=== PATIENT | male | born 1950 | race Caucasian/White ===

== ENCOUNTER 2021-01-01 15:13 | Emergency (ER) | payer MEDICARE, OTHER ==
[~2021-01-01] VITALS: Ht 162.6 cm; Wt 62.1 kg
--- NOTE | 2021-01-01 15:13 | NUR ---
Patient BIBA ALS from home, transferred to bed 6. RN evaluating the patient at bedside.
--- NOTE | 2021-01-01 15:22 | NUR ---
Dr. Harvey is evaluating the patient at bedside.
[2021-01-01 15:23] VITALS: BP 122/60
--- NOTE | 2021-01-01 15:23 | NUR ---
audio technician at pt bedside.
[2021-01-01] MEDS ORDERED: NACL 0.9% 1,000 ML IV ONE (15:25)
--- NOTE | 2021-01-01 15:32 | NUR ---
70 Y/O MALE BIBA FROM HOME HERE FOR ALOC X1WEEK, PT IS A&OX2, REORIENTED TO PLACE. PER EMT PT FAMILY REPORTS THAT PT HAD FALLEN OUT OF CHAIR AND HAS BEEN MUMBLING/SLURRING WORDS AT HOME TODAY. EMT REPORTS PT DRINKS DAILY, 2-3 BEERS. PT STATES HE HAD 2 1/2 BEERS THIS MORNING PRIOR TO ARRIVAL. DENIES ANY PAIN AT THIS TIME.AMBULATES WITH ASSISTANCE. PMH: ANEMIA, STROKE, HIGH CHOLESTEROL, HTN NKA
[2021-01-01 15:34] LABS: BASOPHILS % (AUTO) 0.5 % (0.0-2.0); HEMATOCRIT 32.4 % (36-52); HEMOGLOBIN 11.5 g/dL (12.0-18.0); LYMPHOCYTES % (AUTO) 13.2 % (20.5-51.1); MEAN CORPUSCULAR HEMOGLOBIN 36 pg (27-31); MEAN CORPUSCULAR HGB CONC 36 g/dL (33-37); MONOCYTES # (AUTO) 0.9 K/uL (0.8-1.0); MONOCYTES % (AUTO) 12.4 % (1.7-9.3); NEUTROPHILS # (AUTO) 5.5 K/uL (1.8-7.7); NEUTROPHILS % (AUTO) 73.9 % (42.2-75.2); PLATELET COUNT (AUTO) 335 K/uL (140-450); RED BLOOD CELL COUNT(AUTO) 3.24 MIL/uL (4.20-6.10); RED CELL DISTRIBUTION WIDTH 13.3 % (11.6-13.7); WHITE BLOOD COUNT (AUTO) 7.4 K/uL (4.8-10.8)
[2021-01-01 15:53] LABS: ALBUMIN 2.6 g/dL (3.4-5.0); ANION GAP 12.3 (8-16); ASPARTATE AMINOTRANSFERASE 80 U/L (15-37); CARBON DIOXIDE 21.3 mmol/L (21-32); CHLORIDE 87 mmol/L (98-107); CREATININE 0.9 mg/dL (0.6-1.3); GFR ARICAN-AMERICAN 108 mL/min (>90); GLUCOSE 114 mg/dL (74-106); POTASSIUM 3.6 mmol/L (3.5-5.1); TOTAL BILIRUBIN 0.4 mg/dL (0.0-1.0); UREA NITROGEN, BLOOD 6 mg/dL (7-18)
[2021-01-01 15:56] LABS: ACETAMINOPHEN < 0.5 ug/ml (10-30)
[2021-01-01 15:57] LABS: SODIUM SERUM 117 mmol/L (136-145)
--- NOTE | 2021-01-01 16:00 | NUR ---
PT WAS TAKEN TO CT
--- NOTE | 2021-01-01 16:11 | NUR ---
Pt taken to ER bed 6 via mariann[facility].
[2021-01-01 16:19] LABS: CKMB RELATIVE INDEX 0.1 (0.0-2.5); CREATINE KINASE MB 0.9 ng/mL (0-3.6)
[2021-01-01 16:24] LABS: SALICYLATE < 2.8 mg/dL (2.8-20.0)
--- NOTE | 2021-01-01 16:29 | NUR ---
Collected JOYCELYN brower, walked to lab, gave to Sharon.
[2021-01-01] MEDS ORDERED: GABA300C PO (16:38)
[2021-01-01] MEDS ORDERED: MULT-2253 PO (16:38)
[2021-01-01] MEDS ORDERED: LISI2.5T12 PO (16:38)
[2021-01-01] MEDS ORDERED: ATOR10TA PO (16:38)
[2021-01-01] MEDS ORDERED: AMLO10TA PO (16:38)
[2021-01-01] MEDS ORDERED: cefTRIAXone 1,000 MG VIAL ONE (17:08)
--- NOTE | 2021-01-01 17:20 | NUR ---
ASSUMED CARE OF PATIENT FROM ELLEN TORREZ.
[2021-01-01 17:26] LABS: APPEARANCE,URINE CLEAR (CLEAR); BILIRUBIN,URINE NEGATIVE (NEGATIVE); BLOOD, URINE NEGATIVE (NEGATIVE); COLOR,URINE YELLOW (YELLOW); LEUKOCYTE ESTERASE ,URINE NEGATIVE (NEGATIVE); NITRITE, URINE NEGATIVE (NEGATIVE); UGLUCOSE NEGATIVE (NEGATIVE)
[2021-01-01 18:00] LABS: BARBITURATE, URINE NEGATIVE ng/ml (NEG <=200); BENZODIAZEPINE, URINE NEGATIVE ng/mL (NEG <=200); CANNABINOID, URINE NEGATIVE ng/mL (NEG <=50); COCAINE, URINE NEGATIVE ng/mL (NEG <=300); OPIATE, URINE NEGATIVE ng/mL (NEG <=2000); PHENCYCLIDINE SCREEN,URINE NEGATIVE ng/mL (NEG <=25)
--- NOTE | 2021-01-01 18:34 | NUR ---
Patient to be transferred to [facility]. Is being transferred due to INSURANCE REQUEST. Receiving facility has accepting physician and available space. ER physician has signed transfer form. Patient or responsible democrat has agreed to transfer and signed form. Patient belongings inventoried and will be sent with patient. Copy of nursing notes, lab reports, EKG, Physicians Orders and X-rays to be sent with patient. Report called to ELLEN ANTONIO at receiving facility. [facility] ambulance service has been called for transfer. ETA is 1930.
--- NOTE | 2021-01-01 19:05 | NUR ---
REPORT GIVEN TO ELLEN FRAIRE. ALL CARE TRANSFERRED.
--- NOTE | 2021-01-01 19:06 | NUR ---
REPORT RECIEVED FROM ELLEN KIM FOR CONTINUITY OF CARE.
--- NOTE | 2021-01-01 19:14 | NUR ---
PT UTILIZED URINAL BEDSIDE. 350 CC CLEAR, YELLOW URINE NOTED. PT DENIES PAIN OR DISCOMFORT AT THIS TIME. IV TO L FA PATENT WITH POSITIVE BLOOD RETURN. AT BEDSIDE.
--- NOTE | 2021-01-01 20:13 | NUR ---
Patient appears to be resting comfortably in bed. Vital Signs within normal limits. Respirations even and unlabored. PT DENIES PAIN OR DISCOMFORT AT THIS TIME. PT STATES "I FEEL REALLY GOOD." DENIES DIZZINESS. UPDATED PT REGARDING [facility] ETA 1 HOUR. AT BEDSIDE. PT VERBALIZED UNDERSTANDING.
[2021-01-01 20:35] VITALS: BP 123/62
--- NOTE | 2021-01-01 20:35 | NUR ---
PT TRANSFERED VIA [facility].
== END 2021-01-01 20:35 | disposition short-term general hospital (02) ==
LOC: MED 15:13
DX: R55 Syncope and collapse (principal); Z20.822 Contact with and (suspected) exposure to COVID-19; E87.1 Hypo-osmolality and hyponatremia; J18.9 Pneumonia, unspecified organism; Z79.899 Other long term (current) drug therapy
CPT/HCPCS: 36415; 70450; 71045; 80053; 80305; 81003; 82550; 82553; 84484; 85025; 87426; 93005; 96361; 96365; 99291; G0480; G0482; J0696; J7030

== ENCOUNTER 2021-10-04 17:17 | Emergency (ER) | payer MEDICARE, OTHER ==
[~2021-10-04] VITALS: Ht 172.7 cm; Wt 79.4 kg
[~2021-10-04 17:17] MED LIST: AMLO10TA PO; ATOR10TA PO; GABA300C PO; LISI2.5T12 PO; MULT-2253 PO
--- NOTE | 2021-10-04 17:17 | NUR ---
([id number]) FULL ARREST Gavi LAM, BRANDT; Storm BLACKWELL RCP ATTENDING
--- NOTE | 2021-10-04 17:17 | NUR ---
[facility], CPR IN PROGRESS TO BED 06.
--- NOTE | 2021-10-04 17:45 | NUR ---
called and spoke with edward from [facility]. . will recieve call back in an hour for update
--- NOTE | 2021-10-04 18:22 | NUR ---
Note liz in ED - 10/04/21 at 1825 by [email or web address] SPOKE CAROLEE Barrios FROM [employer]. CALL BACK NUMBER IS [phone]. PER GRACIA PATIENT IS A [facility] CASE, BUT GIVEN OKAY TO MOVE BODY IF NEEDED
--- NOTE | 2021-10-04 18:22 | NUR ---
Note liz in ED - 10/04/21 at 1824 by [email or web address] SPOKE CAROLEE Juarez FROM [employer]. CALL BACK NUMBER IS [phone]. PER GRACIA PATIENT IS A [facility] CASE, BUT GIVEN OKAY TO MOVE BODY IF NEEDED
--- NOTE | 2021-10-04 18:25 | NUR ---
SPOKE CAROLEE Juarez FROM [facility] OFFICER. CALL BACK NUMBER IS [phone]. PER [facility] PATIENT IS A [facility] CASE, BUT GIVEN OKAY TO MOVE BODY IF NEEDED. [facility]
--- NOTE | 2021-10-04 18:30 | NUR ---
GIVEN VERBAL CONSENT FROM [facility] TO CLEAN PATIENT HEAD OFF AND MOVE PATIENT TO ROOM 128
--- NOTE | 2021-10-04 21:31 | NUR ---
[facility] ARRIVED AT THIS TIME
--- NOTE | 2021-10-04 21:43 | NUR ---
BODY PICKED UP BY [facility]
== END 2021-10-04 17:25 ==
LOC: MED 17:17
DX: I46.9 Cardiac arrest, cause unspecified (principal); J45.909 Unspecified asthma, uncomplicated; Z86.73 Personal history of transient ischemic attack (TIA), and cerebral infarction without residual deficits
CPT/HCPCS: 31500; 92950; 99285